=== PATIENT | male | born 1965 | race Native Hawaiian/Other Pacific Islander ===

== ENCOUNTER 2020-05-31 07:58 | Outpatient (CLI) | payer OTHER ==
[~2020-05-31] VITALS: Ht 167.6 cm; Wt 97.5 kg
[2020-05-31 09:01] LABS: PLATELET COUNT 130 K/uL (142-355)
[2020-05-31 10:36] VITALS: BP 105/70; TEMP 99.1
[2020-05-31 11:05] LABS: POTASSIUM 4.1 mmol/L (3.6-5.2)
== END 2020-05-31 11:22 | disposition home or self-care (01) ==
LOC: INF 07:58
PROVIDERS: ATTEND Internal Medicine Endocrinology, Diabetes & Metabolism
DX: U07.1 COVID-19 (principal)
CPT/HCPCS: 36591; 80053; 85027; 96365; Q0239